=== PATIENT | female | born 1970 | race Two or more races ===

== ENCOUNTER 2024-05-25 00:09 | Emergency (ER) | payer BC ==
[~2024-05-25] VITALS: Ht 162.6 cm; Wt 73.8 kg
[2024-05-25 01:07] LABS: Basophils # (auto) 0 10 ^3/uL (0-0.2); Basophils % (auto) 0.8 % (0.0-2.0); Eosinophils # (auto) 0.1 10 ^3/uL (0-0.8); Eosinophils % (auto) 1.6 % (0.0-7.0); Hematocrit 42.6 % (36.0-46.0); Hemoglobin 14.1 g/dL (12.2-16.2); Lymphocytes # (auto) 1.9 10 ^3/uL (0.4-5.4); Lymphocytes % (auto) 35.9 % (10.0-50.0); Mean Corpuscular Hemoglobin 28.4 pg (28.0-32.0); Mean Corpuscular Hgb Conc. 33.1 g/dL (32.0-36.0); Mean Corpuscular Volume 85.9 fL (80.0-100.0); Monocytes # (auto) 0.4 10 ^3/uL (0-1.3); Monocytes % (auto) 7.3 % (0.0-12.0); Neutrophils # (auto) 2.8 10 ^3/uL (1.6-8.6); Neutrophils % (auto) 54.4 % (37.0-80.0); Nucleated Red Blood Cells % 0.1 %; Platelet Count (auto) 240 10^3/uL (140-450); Red Blood Cells 4.96 10^6/uL (4.0-5.20); Red Cell Distribution Width 13.8 % (11.8-14.3); White Blood Cell 5.2 10^3/uL (4.4-10.8)
[2024-05-25 01:23] LABS: Alanine Aminotransferase 21 U/L (7-40); Albumin 4.5 g/dL (3.2-4.8); Alkaline Phosphatase 81 U/L (46-116); Anion Gap 7 (5-15); Aspartate Aminotransferase 15 U/L (13-40); BUN/Creatinine Ratio 20.3 (10.0-20.0); Blood Urea Nitrogen 14 mg/dL (9-23); Calcium 9.5 mg/dL (8.7-10.4); Carbon Dioxide 26 mmol/L (20-31); Chloride 108 mmol/L (98-107); Glucose 108 mg/dL (74-106); Sodium 141 mmol/L (136-145)
[2024-05-25 01:24] LABS: Bilirubin, Total 0.4 mg/dL (0.2-1.0); Total Protein 6.8 g/dL (5.7-8.2)
[2024-05-25 01:29] LABS: Urine Bacteria None Seen /hpf (None Seen)
[2024-05-25 01:53] LABS: Urine Blood TRACE /uL (Negative); Urine Clarity Clear (Clear); Urine Color Light-Yellow (Yellow); Urine Protein, UAD Negative (Negative); Urine Specific Gravity 1.018 (1.001-1.035); Urine Urobilinogen Normal (Negative); Urine WBC 1 /hpf (0 - 5)
--- NOTE | 2024-05-25 02:50 | ED.PDOC ---
General HPI Comments 54-year-old female complaining of right-sided flank pain which started one week ago. States over the last 24 hours pain has become more intense more sharp and worse. No urinary symptoms. Denies any injury or trauma to the area. Nothing makes it better. Patient does report a history of recurrent urinary infections when she was younger. Denies any kidney stones. Chief Complaint: Flank Pain Time Seen by MD: 00:33 Reviewed notes: Nurses Notes Allergies: Coded Allergies: NO KNOWN ALLERGIES (Unverified , 05/25/24) Information Source: Patient Mode of Arrival: Ambulatory Past Medical History PAST MEDICAL HISTORY: UTI'S Constitutional: denies: chills, diaphoresis, fatigue, fever, malaise, sweats, weakness, others EENTM: denies: blurred vision, double vision, ear bleeding, ear discharge, ear drainage, ear pain, ear ringing, eye pain, eye redness, hearing loss, mouth p ain, mouth swelling, nasal discharge, nose bleeding, nose congestion, nose pain, photophobia, tearing, throat pain, throat swelling, voice changes, others Respiratory: denies: cough, hemoptysis, orthopnea, SOB at rest, shortness of br eath, SOB with excertion, stridor, wheezing, others Cardiovascular: denies: chest pain, dizzy spells, diaphoresis, Dyspnea on exertion, edema, irregular heart beat, left arm pain, lightheadedness, palpitations, PND, syncope, others Gastrointestinal: denies: abdomen distended, abdominal pain, blood streaked bowels, constipated, diarrhea, dysphagia, difficulty swallowing, hematemesis, melena, nausea, poor appetite, poor fluid intake, rectal bleeding, rectal pain, vomiting, others Genitourinary: reports: flank pain; denies: abnormal vagina bleeding, burning, dyspareunia, dysuria, frequency, hematuria, incontinence, pain, , vagina discharge, urgency, others Neurological: denies: dizziness, fainting, headache, left sided numbness, left sided weakness, numbness, paresthesia, pre-existing deficit, right sided numbness, right sided weakness, seizure, speech problems, tingling, tremors, weakness, others Musculoskeletal: denies: back pain, gout, joint pain, joint swelling, muscle pain, muscle stiffness, neck pain, others Integumetry: denies: bruises, change in color, change in hair/nails, dryness, laceration, lesions, lumps, rash, wounds, others Allergic/Immunocompromised: denies: Difficulty Healing, Frequent Infections, Hives, Itching, others Physical Exam General Appearance: No Apparent Distress, Normal HEENT: Normal ENT Inspection, Pharynx Normal, TMs Normal Neck: Full Range of Motion, Non-Tender, Normal, Normal Inspection Respiratory: Chest Non-Tender, Lungs Clear, No Accessory Muscle Use, No Respiratory Distress, Normal Breath Sounds Cardiovascular: No Edema, No JVD, No Murmur, No Gallop, Normal Peripheral Pulses, Regular Rate/Rhythm Breast Exam: Deferred Gastrointestinal: No Organomegaly, Non Tender, No Pulsatile Mass, Normal Bowel Sounds, Soft Genitalia: Deferred Pelvic: Deferred Rectal: Deferred Extremities: No calf tenderness, Normal capillary refill, Normal inspection, Normal range of motion, Non-tender, No pedal edema Musculoskeletal : Extremity Location: Back (Negative CVA tenderness) Apperance: Normal Neurologic: Alert, automatic tire tester II-XII nml as Tested, No Motor Deficits, Normal Affect, Normal Mood, No Sensory Deficits Cerebellar Function: Normal Reflexes: Normal Skin: Dry, Normal Color, Warm Lymphatic: No Adenopathy Was a procedure done? Was a procedure done?: No Differential Diagnosis Kidney stone (Female): Renal failure, Strain, Urinary obstruction, Urolithiasis Urinary Problem (Female): UTI X-Ray, Labs, Meds, VS Vital Signs Date Time Temp Pulse Resp B/P (MAP) Pulse Ox O2 Delivery O2 Flow Rate FiO2 05/25/24 05:44 97.7 66 16 120/69 (86) 100 97.7 05/25/24 00:29 97.8 75 18 100/65 (77) 98 Lab Test 05/25/24 00:54 05/25/24 00:30 Range/Units White Blood Count 5.2 4.4-10.8 10^3/uL Red Blood Count 4.96 4.0-5.20 10^6/uL Hemoglobin 14.1 12.2-16.2 g/dL Hematocrit 42.6 36.0-46.0 % Mean Corpuscular Volume 85.9 80.0-100.0 fL Mean Corpuscular Hemoglobin 28.4 28.0-32.0 pg Mean Corpuscular Hemoglobin Concent 33.1 32.0-36.0 g/dL Red Cell Distribution Width 13.8 11.8-14.3 % Platelet Count 240 140-450 10^3/uL Mean Platelet Volume 8.8 6.9-10.8 fL Neutrophils (%) (Auto) 54.4 37.0-80.0 % Lymphocytes (%) (Auto) 35.9 10.0-50.0 % Monocytes (%) (Auto) 7.3 0.0-12.0 % Eosinophils (%) (Auto) 1.6 0.0-7.0 % Basophils (%) (Auto) 0.8 0.0-2.0 % Neutrophils # (Auto) 2.8 1.6-8.6 10 ^3/uL Lymphocytes # (Auto) 1.9 0.4-5.4 10 ^3/uL Monocytes # (Auto) 0.4 0-1.3 10 ^3/uL Eosinophils # (Auto) 0.1 0-0.8 10 ^3/uL Basophils # (Auto) 0 0-0.2 10 ^3/uL Nucleated Red Blood Cells 0.1 % Sodium Level 141 136-145 mmol/L Potassium Level 4.0 3.5-5.1 mmol/L Chloride Level 108 H 98-107 mmol/L Carbon Dioxide Level 26 20-31 mmol/L Anion Gap 7 5-15 Blood Urea Nitrogen 14 9-23 mg/dL Creatinine 0.69 0.550-1.02 mg/dL Glomerular Filtration Rate Calc 104 >90 mL/min BUN/Creatinine Ratio 20.3 H 10.0-20.0 Serum Glucose 108 H 74-106 mg/dL Calcium Level 9.5 8.7-10.4 mg/dL Total Bilirubin 0.4 0.2-1.0 mg/dL Aspartate Amino Transferase (AST) 15 13-40 U/L Alanine Aminotransferase (ALT) 21 7-40 U/L Alkaline Phosphatase 81 46-116 U/L Total Protein 6.8 5.7-8.2 g/dL Albumin 4.5 3.2-4.8 g/dL Urine Color Light-yellow Yellow Urine Clarity Clear Clear Urine pH 6.0 5.0-9.0 Urine Specific [place] 1.018 1.001-1.035 Urine Protein Negative Negative Urine Ketones Negative Negative Urine Blood Trace H Negative /uL Urine Nitrite Negative Negative Urine Bilirubin Negative Negative Urine Urobilinogen Normal Negative mg/dL Urine Leukocyte Esterase Negative Negative /uL Urine RBC 2 0 - 4 /hpf Urine WBC 1 0 - 5 /hpf Urine Squamous Epithelial Cells Few <5 /hpf Urine Bacteria None seen None Seen /hpf Urine Glucose Normal Normal mg/dL [facility] [id number] [place] [id number] Ph: [phone] DIAGNOSTIC IMAGING Diagnostic Imaging Report : [id number] Signed PATIENT: JOE SCHUSTER ACCT: [id number] UNIT: [id number] : 1970 LOC: ER ROOM / BED: / AGE / SEX: 54 / F ADM STATUS: REG ER SERVICE [id number] ORDERING PHYSICIAN: LEANNA CLIFTON PROCEDURE(s): ABPL - CT AB PEL WO CON-NO ORAL OR IV REASON: flank pain ORDER NUMBER(s): [id number], ACCESSION NUMBER(s): [id number] Examination: ABPL CLINICAL INDICATION: flank pain COMPARISON: None. CONTRAST USED: None. TECHNIQUE: A plain CT study of the abdomen and pelvis was performed using 5 mm thin slices. Multiplanar reconstructions were obtained. The scan followed ALARA principles (As Low as Reasonably Achievable). FINDINGS: CT Abdomen: Lung Base: No focal infiltrates or pleural effusion. 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 Liver: Normal in size with homogeneous attenuation. No focal lesions detected. No intrahepatic biliary ductal dilatation. Gallbladder and Biliary System: Gallbladder appears unremarkable, with no evidence of intraluminal pathology. Common bile duct is not dilated. Pancreas: Normal in size and shape. No focal lesions or peripancreatic abnormalities. Spleen: Normal size, no focal abnormalities. Adrenal Glands: Both adrenal glands are normal in size and morphology. Kidneys: Right kidney shows a tiny 2 mm punctate calculus in the interpolar calyx. A 3 mm calculus in the right distal ureter near the iliac vessels with mild right-sided hydroureteronephrosis. No additional renal calculi or hydronephrosis. Perinephric spaces are clear. Vessels: Retroaortic left renal vein noted. Due to the unenhanced nature of the study, aorta, IVC, and mesenteric vessels are not well-evaluated. Stomach and Bowel: Small bowel loops appear unremarkable. Large bowel loops are moderately distended with fecal matter, suggestive of constipation. No evidence of diverticulosis, diverticulitis, or inflammatory bowel wall thickening. No ascites. CT Pelvis: Appendix: Visualized and appears unremarkable. Colon: Large bowel loops are moderately distended with fecal matter, indicating constipation. No diverticulosis or diverticulitis. Bladder: Urinary bladder appears unremarkable. Uterus and Adnexa: Intrauterine contraceptive device is identified. Bilateral ovaries appear normal, with no evidence of adnexal masses. Small calcific densities in the parametrial regions, likely phleboliths. Lymph Nodes and Fluid Collections: No significant pelvic lymphadenopathy. No abnormal fluid collections. Skeletal System: Mild degenerative changes in the sacroiliac joints and superolateral hip joints. Grade 1 anterolisthesis of L4 over L5 with severe bilateral facet arthropathy. Moderate narrowing of the bilateral neural foramina at the L5-S1 level. No acute osseous abnormalities. IMPRESSION: 1. Renal and Ureteral Findings: 3 mm calculus in the right distal ureter with mild hydroureteronephrosis. 2. Tiny 2 mm calculus in the interpolar calyx of the left kidney. 3. Colonic Findings: Moderate distention of the large bowel loops with fecal matter, indicating constipation. No evidence of inflammatory changes or diverticulitis. 4. Reproductive System: Intrauterine contraceptive device is in place. 5. Bilateral ovaries appear unremarkable. Presence of small phleboliths in the parametrial regions. 6. Spinal Findings: Grade 1 anterolisthesis of L4 over L5 with severe facet arthropathy and moderate foraminal narrowing at the L5-S1 level. 7. Mild degenerative changes in the sacroiliac joints and superolateral hip joints. Electronically Signed 05/25/2024 03:28 Olga Correa ATED BY: AFTAB RUBIO MD DICTATED DATE/TIME: 05/25/24327 SIGNED BY: AFTAB RUBIO MD SIGNED DATE/TIME: 05/25/24327 CC: CBC and CMP are normal. CT reveals right distal ureter calculus with mild hydro ureteral nephrosis in left kidney calculus. The patient was discharged with Levaquin and [place]. X-Ray, Labs, Meds, VS Comment Imaging: X-rays and CT scans were reviewed and interpreted by this provider, imaging shows no fractures and no pathological disease. Pending radiology review. Laboratory: Labs reviewed and interpreted by this provider. No significant abnormalities noted. Patient has prior medical visits reviewed. Med reconciliation performed Vital signs reviewed Time of 1ST Reevaluation: 02:56 Reevaluation 1ST: Unchanged Patient Education/Counseling: Diagnosis, Treatment, Need For Follow Up (Patient advised to follow-up in the emergency room in the next 24 to 48 hours if symptoms do not improve. Advised follow-up with PCP in the next 3 to 5 days. Patient verbalized understanding. ) Family Education/Counseling: Diagnosis, Treatment Departure 1 Departure Time of Disposition: 05:49 Impression: Primary Impression: Ureteral stone Additional Impression: Kidney stone Disposition: 01 HOME / SELF CARE / HOMELESS Condition: Fair Additional Instructions: Reassessed patient, vital signs stable. Denies any new symptoms. Patient is able to tolerate PO and ambulate/be mobile at their baseline without concern. Risks and benefits of all medications given or prescribed, if any, discussed. All lab work, imaging and diagnostic studies were reviewed by me. The patient was counseled extensively on my clinical impression, diagnosis, expected course of the disease, and plan, including their follow-up care. Will discharge patient. Patient instructed to follow up with Primary Care Physician within 24-48 hours. Strict return precautions given for further exacerbation of symptoms or for new symptoms. The patient was given the opportunity to ask questions and all questions were answered by myself and the nursing/tech staff. Patient is in agreement with the care plan. The patient verbally expressed understanding of the discharge instructions, including the reasons to return to the Emergency Department. e-Prescriptions Levofloxacin Hemihydrate (LEVAQUIN 500 MG) 500 Mg Tab 1 TAB PO DAILY, #7 TAB Prov: ASHWIN PATTERSON MD 05/25/24 Hydrocodone-Acetaminophen (Hydrocodone Bitartrate/AC 10-325 mg) 1 Tab Tab 1 TAB PO QIDPRN, #20 TAB Prov: ASHWIN PATTERSON MD 05/25/24 Discharged With: Self Critical Care Note Critical Care Time?: No Stability Stability form required: No Heart Score Heart Score: Heart Score Response (Comments) Value History N/A 0 EKG N/A 0 Age N/A 0 Risk Factors N/A 0 Troponin N/A 0 Total 0 LEANNA CLIFTON May 25, 2024 02:49 ASHWIN PATTERSON MD May 25, 2024 05:53
--- NOTE | 2024-05-25 03:36 | DVH ---
Examination: ABPL CLINICAL INDICATION: flank pain COMPARISON: None. CONTRAST USED: None. TECHNIQUE: A plain CT study of the abdomen and pelvis was performed using 5 mm thin slices. Multiplan ar reconstructions were obtained. The scan followed ALARA principles (As Low as Reasonably Achievable ). FINDINGS: CT Abdomen: Lung Base: No focal infiltrates or pleural effusion. 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 Liver: Normal in size with homogeneous attenuation. No focal lesions detected. No intrahepatic biliar y ductal dilatation. Gallbladder and Biliary System: Gallbladder appears unremarkable, with no evidence of intraluminal pa thology. Common bile duct is not dilated. Pancreas: Normal in size and shape. No focal lesions or peripancreatic abnormalities. Spleen: Normal size, no focal abnormalities. Adrenal Glands: Both adrenal glands are normal in size and morphology. Kidneys: Right kidney shows a tiny 2 mm punctate calculus in the interpolar calyx. A 3 mm calculus in the right distal ureter near the iliac vessels with mild right-sided hydroureteron ephrosis. No additional renal calculi or hydronephrosis. Perinephric spaces are clear. Vessels: Retroaortic left renal vein noted. Due to the unenhanced nature of the study, aorta, IVC, and mesenteric vessels are not well-evaluated. Stomach and Bowel: Small bowel loops appear unremarkable. Large bowel loops are moderately distended with fecal matter, suggestive of constipation. No evidence of diverticulosis, diverticulitis, or inflammatory bowel wall thickening. No ascites. CT Pelvis: Appendix: Visualized and appears unremarkable. Colon: Large bowel loops are moderately distended with fecal matter, indicating constipation. No dive rticulosis or diverticulitis. Bladder: Urinary bladder appears unremarkable. Uterus and Adnexa: Intrauterine contraceptive device is identified. Bilateral ovaries appear normal, with no evidence of adnexal masses. Small calcific densities in the parametrial regions, likely phleboliths. Lymph Nodes and Fluid Collections: No significant pelvic lymphadenopathy. No abnormal fluid collectio ns. Skeletal System: Mild degenerative changes in the sacroiliac joints and superolateral hip joints. Gra de 1 anterolisthesis of L4 over L5 with severe bilateral facet arthropathy. Moderate narrowing of the bilateral neural foramina at the L5-S1 level. No acute osseous abnormalities. IMPRESSION: 1. Renal and Ureteral Findings: 3 mm calculus in the right distal ureter with mild hydroureteronephr osis. 2. Tiny 2 mm calculus in the interpolar calyx of the left kidney. 3. Colonic Findings: Moderate distention of the large bowel loops with fecal matter, indicating cons tipation. No evidence of inflammatory changes or diverticulitis. 4. Reproductive System: Intrauterine contraceptive device is in place. 5. Bilateral ovaries appear unremarkable. Presence of small phleboliths in the parametrial regions. 6. Spinal Findings: Grade 1 anterolisthesis of L4 over L5 with severe facet arthropathy and moderate foraminal narrowing at the L5-S1 level. 7. Mild degenerative changes in the sacroiliac joints and superolateral hip joints. Electronically Signed 05/25/2024 03:28 Olga Correa
[2024-05-25 05:44] VITALS: BP 120/69; PULSE 66; RESP 16; TEMP 97.7; O2SAT 100
[2024-05-25] MEDS ORDERED: LEVO500T91 PO (05:51)
[2024-05-25] MEDS ORDERED: HYDR-4798 PO (05:51)
== END 2024-05-25 06:16 | disposition home or self-care (01) ==
LOC: ER 00:09
DX: N13.2 Hydronephrosis with renal and ureteral calculous obstruction (principal); Z87.440 Personal history of urinary (tract) infections
CPT/HCPCS: 36415; 74176; 80053; 81001; 85025

== ENCOUNTER 2024-06-04 10:04 | Emergency (ER) | payer BC ==
[~2024-06-04] VITALS: Ht 162.6 cm; Wt 72.7 kg
[~2024-06-04 10:04] MED LIST: HYDR-4798 PO; LEVO500T91 PO
--- NOTE | 2024-06-04 11:29 | ED.PDOC ---
General HPI Comments 54Y F with PMHx UTIs and kidney stones presents to ED for chief complaint rt flank pain since this morning. Pt states she was dx with kidney stone 1wk ago. Pt denies hematuria, fever, nausea, and vomiting. No known allergies. Chief Complaint: Flank Pain Time Seen by MD: 11:00 Reviewed notes: Medications, Allergies Allergies: Coded Allergies: NO KNOWN ALLERGIES (Unverified , 05/25/24) Home Meds Active Scripts Levofloxacin Hemihydrate (LEVAQUIN 500 MG) 500 Mg Tab, 1 TAB PO DAILY, #7 TAB Prov:ASHWIN PATTERSON MD 05/25/24 Hydrocodone-Acetaminophen (Hydrocodone Bitartrate/AC 10-325 mg) 1 Tab Tab, 1 TAB PO QIDPRN, #20 TAB Prov:ASHWIN PATTERSON MD 05/25/24 Information Source: Patient, Spouse Mode of Arrival: Ambulatory Severity: Mild Inability to void: Mild Timing: Hours Duration: Since onset Onset: Spontaneous Symptoms: None History of: UTI, Kidney stone Location: (R) Flank Modifying factors: None associated signs and symptoms: Other Past Medical History PAST MEDICAL HISTORY: Kidney Stones, UTI'S Surgical History: Denies all surgeries DOWN FILLER History: No Pertinent DOWN FILLER History Family History Family History: Unknown Social History Smoker: Non-Smoker Alcohol: Denies ETOH Use Drugs: Denies Drug Use Lives In: Home Constitutional: denies: chills, diaphoresis, fatigue, fever, malaise, sweats, weakness, others EENTM: denies: blurred vision, double vision, ear bleeding, ear discharge, ear drainage, ear pain, ear ringing, eye pain, eye redness, hearing loss, mouth pain, mouth swelling, nasal discharge, nose bleeding, nose congestion, nose pain, photophobia, tearing, throat pain, throat swelling, voice changes, others Respiratory: denies: cough, hemoptysis, orthopnea, SOB at rest, shortness of breath, SOB with excertion, stridor, wheezing, others Cardiovascular: denies: chest pain, dizzy spells, diaphoresis, Dyspnea on exertion, edema, irregular heart beat, left arm pain, lightheadedness, palpitations, PND, syncope, others Gastrointestinal: denies: abdomen distended, abdominal pain, blood streaked bowels, constipated, diarrhea, dysphagia, difficulty swallowing, hematemesis, melena, nausea, poor appetite, poor fluid intake, rectal bleeding, rectal pain, vomiting, others Genitourinary: reports: flank pain; denies: abnormal vagina bleeding, burning, dyspareunia, dysuria, frequency, hematuria, incontinence, pain, , vagina discharge, urgency, others Neurological: denies: dizziness, fainting, headache, left sided numbness, left sided weakness, numbness, paresthesia, pre-existing deficit, right sided numbness, right sided weakness, seizure, speech problems, tingling, tremors, weakness, others Musculoskeletal: denies: back pain, gout, joint pain, joint swelling, muscle pain, muscle stiffness, neck pain, others Integumetry: denies: bruises, change in color, change in hair/nails, dryness, laceration, lesions, lumps, rash, wounds, others Allergic/Immunocompromised: denies: Difficulty Healing, Frequent Infections, Hives, Itching, others Hematologic/Lymphatic: denies: anemia, blood clots, easy bleeding, easy bruising, swollen glands, others Endocrine: denies: excessive hunger, excessive sweating, excessive thirst, excessive urination, flushing, intolerance to cold, intolerance to heat, unexplained weight gain, unexplained weight loss, others Psychiatric: denies: anxiety, bipolar disorder, depression, hopeless, panic disorder, schizophrenia, sleepless, suicidal, others All Other Systems: Reviewed and Negative Physical Exam General Appearance: No Apparent Distress, Normal HEENT: Normal ENT Inspection, Pharynx Normal, TMs Normal Neck: Full Range of Motion, Non-Tender, Normal, Normal Inspection Respiratory: Chest Non-Tender, Lungs Clear, No Accessory Muscle Use, No Respiratory Distress, Normal Breath Sounds Cardiovascular: No Edema, No JVD, No Murmur, No Gallop, Normal Peripheral Pulses, Regular Rate/Rhythm Breast Exam: Deferred Gastrointestinal: No Organomegaly, Non Tender, No Pulsatile Mass, Normal Bowel Sounds, Soft Genitalia: Deferred Pelvic: Deferred Rectal: Deferred Extremities: No calf tenderness, Normal capillary refill, Normal inspection, Normal range of motion, Non-tender, No pedal edema Musculoskeletal : Apperance: Normal Neurologic: Alert, professor of languages II-XII nml as Tested, No Motor Deficits, Normal Affect, Normal Mood, No Sensory Deficits Cerebellar Function: Normal Reflexes: Normal Skin: Dry, Normal Color, Warm Lymphatic: No Adenopathy Was a procedure done? Was a procedure done?: No Differential Diagnosis Kidney stone (Female): Musculoskeletal pain, Urinary obstruction, Urolithiasis X-Ray, Labs, Meds, VS Vital Signs Date Time Temp Pulse Resp B/P (MAP) Pulse Ox O2 Delivery O2 Flow Rate FiO2 06/04/24 12:56 65 17 99 Room Air 06/04/24 12:56 98.5 65 17 110/70 (83) 99 98.5 06/04/24 12:18 18 97 Room Air* 0 21 06/04/24 11:56 72 18 97 Room Air 06/04/24 11:56 98.0 72 18 108/73 (85) 97 98.0 06/04/24 10:26 97.3 97 20 133/84 (100) 96 Lab Test 06/04/24 11:18 06/04/24 10:18 Range/Units White Blood Count 5.9 4.4-10.8 10^3/uL Red Blood Count 4.83 4.0-5.20 10^6/uL Hemoglobin 13.8 12.2-16.2 g/dL Hematocrit 41.4 36.0-46.0 % Mean Corpuscular Volume 85.6 80.0-100.0 fL Mean Corpuscular Hemoglobin 28.6 28.0-32.0 pg Mean Corpuscular Hemoglobin Concent 33.4 32.0-36.0 g/dL Red Cell Distribution Width 13.6 11.8-14.3 % Platelet Count 232 140-450 10^3/uL Mean Platelet Volume 8.8 6.9-10.8 fL Neutrophils (%) (Auto) 68.7 37.0-80.0 % Lymphocytes (%) (Auto) 23.3 10.0-50.0 % Monocytes (%) (Auto) 6.6 0.0-12.0 % Eosinophils (%) (Auto) 0.6 0.0-7.0 % Basophils (%) (Auto) 0.8 0.0-2.0 % Neutrophils # (Auto) 4.1 1.6-8.6 10 ^3/uL Lymphocytes # (Auto) 1.4 0.4-5.4 10 ^3/uL Monocytes # (Auto) 0.4 0-1.3 10 ^3/uL Eosinophils # (Auto) 0 0-0.8 10 ^3/uL Basophils # (Auto) 0 0-0.2 10 ^3/uL Nucleated Red Blood Cells 0.0 % Sodium Level 141 136-145 mmol/L Potassium Level 4.2 3.5-5.1 mmol/L Chloride Level 107 98-107 mmol/L Carbon Dioxide Level 28 20-31 mmol/L Anion Gap 6 5-15 Blood Urea Nitrogen 16 9-23 mg/dL Creatinine 0.72 0.550-1.02 mg/dL Glomerular Filtration Rate Calc 101 >90 mL/min BUN/Creatinine Ratio 22.2 H 10.0-20.0 Serum Glucose 105 74-106 mg/dL Calcium Level 9.9 8.7-10.4 mg/dL Beta HCG, Quantitative 3.4 1.5-4.2 mIU/mL Urine Color Colorless Yellow Urine Clarity Clear Clear Urine pH 7.5 5.0-9.0 Urine Specific [place] 1.008 1.001-1.035 Urine Protein Negative Negative Urine Ketones Negative Negative Urine Blood Negative Negative /uL Urine Nitrite Negative Negative Urine Bilirubin Negative Negative Urine Urobilinogen Normal Negative mg/dL Urine Leukocyte Esterase Negative Negative /uL Urine RBC 1 0 - 4 /hpf Urine WBC None seen 0 - 5 /hpf Urine Squamous Epithelial Cells Few <5 /hpf Urine Bacteria Few H None Seen /hpf Urine Glucose Normal Normal mg/dL Current Medications Medications (Trade) Dose Ordered Sig/Asmita Route Start Time Stop Time Status Last Admin Ketorolac Tromethamine (Toradol Injection) 30 mg ONCE ONCE IV 06/04/24 11:15 06/04/24 11:16 DC 06/04/24 12:14 Sodium Chloride 1,000 ml @ 1,000 mls/hr Q1H ONCE IV 06/04/24 11:15 06/04/24 12:14 DC 06/04/24 12:14 [place] [id number] Ph: [phone] DIAGNOSTIC IMAGING Diagnostic Imaging Report : [id number] Signed PATIENT: JOE SCHUSTER ACCT: [id number] UNIT: [id number] : 1970 LOC: ER ROOM / BED: / AGE / SEX: 54 / F ADM STATUS: REG ER SERVICE 1110 ORDERING PHYSICIAN: MURTAZA GILES MD PROCEDURE(s): ABPL - CT AB PEL WO CON-NO ORAL OR IV REASON: right flank pain ORDER NUMBER(s): [id number], ACCESSION NUMBER(s): [id number] CT CT AB PEL WO CON-NO ORAL OR IV INDICATION: right flank pain EXAM DATE: 06/04/2024 12:09 PM COMPARISON: CT CT AB PEL WO CON-NO ORAL OR IV on DOS: 05/25/24 RADIATION DOSE: CTDIvol: 9.47 mGy, DLP: 453.6 mGy*cm PROCEDURE: Helical CT images were obtained of the abdomen and pelvis without IV contrast Sagittal and coronal reconstructions are provided. ORAL CONTRAST: None. ADDITIONAL IMAGES / REFORMATS: None All CT scans at this medical facility are performed using dose modulation techniques as appropriate to a performed exam including the following: Automated exposure control was utilized; adjustment of the MA and/or KV according to patient size; and use of iterative reconstruction technique. FINDINGS: LUNG BASE: Normal. LIVER: Normal. GALLBLADDER AND BILIARY TREE: No calcified gallstones. Normal caliber wall. No intra- or extrahepatic biliary ductal dilation. PANCREAS: Normal. SPLEEN: Normal. BOWEL: Normal. Normal appendix. ADRENALS: Normal. KIDNEYS AND URETER: Punctate nonobstructive left kidney stones. BLADDER: Normal. REPRODUCTIVE ORGANS: IUD in the uterus. LYMPH NODES:No lymphadenopathy. PERITONEUM: No ascites or free air. No other fluid collection. VESSELS: Scattered atherosclerotic calcifications are noted. RETROPERITONEUM: Normal. ABDOMINAL WALL: Normal. BONES: Scattered osseous degenerative changes are noted. IMPRESSION: No acute intraabdominal abnormality. Punctate nonobstructive left kidney stones. IUD in the uterus in appropriate position. ATED BY: KEVIN DEMPSEY MD DICTATED DATE/TIME: 06/04/24 1238 SIGNED BY: KEVIN DEMPSEY MD SIGNED DATE/TIME: 06/04/24 1238 CC: Time of 1ST Reevaluation: 11:30 Reevaluation 1ST: Unchanged Time of 2ND Reevaluation: 15:44 Reevaluation 2ND: Improved Patient Education/Counseling: Diagnosis, Treatment Family Education/Counseling: Diagnosis, Treatment Additional Information Tests ordered and results reviewed: CBC, BMP, beta hCG, UA, CT abd/pelvis. Independent historians include: Spouse. Dr. Giles interpreted each of the tests and agrees with the result. Results and treatment discussed with the pt/family members and medical personnel. pt has no evidence of kidney stones or pyelonephritis or uti. her back pain may be muscular in nature. i will start her on motrin and flexeril Departure 1 Departure Time of Disposition: 15:45 Impression: Primary Impression: Back pain Qualified Codes: M54.50 - Low back pain, unspecified Disposition: HOME / SELF CARE / HOMELESS Condition: Good e-Prescriptions Cyclobenzaprine HCl (Cyclobenzaprine Hydrochlo) 7.5 Mg Tab 7.5 MG PO Q8HP PRN for 3 Days, #9 TAB Prov: MURTAZA GILES MD 06/04/24 Ibuprofen Micronized (MOTRIN TABLET) 600 Mg Tb 600 MG PO TID PRN, #40 TAB *Black box warning-NSAIDS can increase risk of [place] & hypertension, GI irritation, ulceration, bleed, perferation. Do not use post cardiac surgery. Use short duration/lowest effective dose. Prov: MURTAZA GILES MD 06/04/24 Discharged With: Self Critical Care Note Critical Care Time?: No Stability Stability form required: No I personally scribed for MURTAZA GILES MD ([facility]) on 06/04/24 at 11:29. Electronically submitted by Anisa Dale ([employer]). I personally scribed for MURTAZA GILES MD ([email or web address]) on 06/04/24 at 11:30. Electronically submitted by Anisa Dale ([employer]). I personally scribed for MURTAZA GILES MD ([email or web address]) on 06/04/24 at 13:14. Electronically submitted by Anisa Dale ([employer]). MURTAZA GILES MD Jun 04, 2024 11:29
[2024-06-04 11:38] LABS: Basophils # (auto) 0 10 ^3/uL (0-0.2); Basophils % (auto) 0.8 % (0.0-2.0); Eosinophils # (auto) 0 10 ^3/uL (0-0.8); Eosinophils % (auto) 0.6 % (0.0-7.0); Hematocrit 41.4 % (36.0-46.0); Hemoglobin 13.8 g/dL (12.2-16.2); Lymphocytes # (auto) 1.4 10 ^3/uL (0.4-5.4); Lymphocytes % (auto) 23.3 % (10.0-50.0); Mean Corpuscular Hemoglobin 28.6 pg (28.0-32.0); Mean Corpuscular Hgb Conc. 33.4 g/dL (32.0-36.0); Mean Corpuscular Volume 85.6 fL (80.0-100.0); Monocytes # (auto) 0.4 10 ^3/uL (0-1.3); Monocytes % (auto) 6.6 % (0.0-12.0); Neutrophils # (auto) 4.1 10 ^3/uL (1.6-8.6); Neutrophils % (auto) 68.7 % (37.0-80.0); Platelet Count (auto) 232 10^3/uL (140-450); Red Blood Cells 4.83 10^6/uL (4.0-5.20); Red Cell Distribution Width 13.6 % (11.8-14.3); White Blood Cell 5.9 10^3/uL (4.4-10.8)
[2024-06-04 11:40] LABS: Anion Gap 6 (5-15); Calcium 9.9 mg/dL (8.7-10.4); Carbon Dioxide 28 mmol/L (20-31); Chloride 107 mmol/L (98-107); Potassium 4.2 mmol/L (3.5-5.1); Sodium 141 mmol/L (136-145)
[2024-06-04 11:44] LABS: Urine WBC None Seen /hpf (0 - 5)
[2024-06-04 11:46] LABS: BUN/Creatinine Ratio 22.2 (10.0-20.0); Blood Urea Nitrogen 16 mg/dL (9-23); Glucose 105 mg/dL (74-106)
[2024-06-04 11:50] LABS: Urine Bacteria FEW /hpf (None Seen); Urine Blood Negative /uL (Negative); Urine Clarity Clear (Clear); Urine Color Colorless (Yellow); Urine Protein, UAD Negative (Negative); Urine Specific Gravity 1.008 (1.001-1.035); Urine Squamous Epithelial Cell FEW /hpf (<5); Urine Urobilinogen Normal (Negative); Urine pH 7.5 (5.0-9.0)
[2024-06-04] MEDS: KETOROLAC TROMETH 30 MG/ML 1ML VIAL ONE (12:12)
[2024-06-04] MEDS: SODIUM CHLORIDE 0.9% 1,000 ML IV ONE (12:14)
[2024-06-04] MEDS: KETOROLAC TROMETH 30 MG/ML 1ML VIAL IV ONE (12:14)
[2024-06-04 12:18] VITALS: RESP 18; O2SAT 97
--- NOTE | 2024-06-04 12:40 | DVH ---
CT CT AB PEL WO CON-NO ORAL OR IV INDICATION: right flank pain EXAM DATE: 06/04/2024 12:09 PM COMPARISON: CT CT AB PEL WO CON-NO ORAL OR IV on DOS: 05/25/24 RADIATION DOSE: CTDIvol: 9.47 mGy, DLP: 453.6 mGy*cm PROCEDURE: Helical CT images were obtained of the abdomen and pelvis without IV contrast Sagittal an d coronal reconstructions are provided. ORAL CONTRAST: None. ADDITIONAL IMAGES / REFORMATS: None All CT scans at this medical facility are performed using dose modulation techniques as appropriate t o a performed exam including the following: Automated exposure control was utilized; adjustment of th e MA and/or KV according to patient size; and use of iterative reconstruction technique. FINDINGS: LUNG BASE: Normal. LIVER: Normal. GALLBLADDER AND BILIARY TREE: No calcified gallstones. Normal caliber wall. No intra- or extrahepatic biliary ductal dilation. PANCREAS: Normal. SPLEEN: Normal. BOWEL: Normal. Normal appendix. ADRENALS: Normal. KIDNEYS AND URETER: Punctate nonobstructive left kidney stones. BLADDER: Normal. REPRODUCTIVE ORGANS: IUD in the uterus. LYMPH NODES:No lymphadenopathy. PERITONEUM: No ascites or free air. No other fluid collection. VESSELS: Scattered atherosclerotic calcifications are noted. RETROPERITONEUM: Normal. ABDOMINAL WALL: Normal. BONES: Scattered osseous degenerative changes are noted. IMPRESSION: No acute intraabdominal abnormality. Punctate nonobstructive left kidney stones. IUD in the uterus in appropriate position.
[2024-06-04 12:56] VITALS: TEMP 98.5
[2024-06-04] MEDS ORDERED: CYCL7.5T66 PO (15:47)
[2024-06-04] MEDS ORDERED: IBU600T PO (15:47)
[2024-06-04 15:59] VITALS: BP 113/61; PULSE 66; RESP 17; O2SAT 100
== END 2024-06-04 16:00 | disposition home or self-care (01) ==
LOC: ER 10:04
DX: M54.59 Other low back pain (principal); R10.2 Pelvic and perineal pain; Z87.442 Personal history of urinary calculi; Z87.440 Personal history of urinary (tract) infections
CPT/HCPCS: 36415; 74176; 80048; 81001; 84702; 85025; 96361; 96374; 99285; J1885; J7030

== ENCOUNTER 2025-01-16 10:15 | Outpatient (CLI) | payer BC ==
[~2025-01-16 10:15] MED LIST changes: +CYCL7.5T66 PO; +IBU600T PO
[2025-01-16 10:46] LABS: Hematocrit 43.3 % (36.0-46.0); Hemoglobin 14.7 g/dL (12.2-16.2); Mean Corpuscular Hemoglobin 28.8 pg (28.0-32.0); Mean Corpuscular Volume 85.0 fL (80.0-100.0); Nucleated Red Blood Cells % 0.1 %
[2025-01-16 10:55] LABS: Urine Protein, UAD Negative (Negative)
[2025-01-16 11:10] LABS: Follicle Stimulating Hormone 95.03 IU/L (SEE BELOW)
[2025-01-16 11:13] LABS: Alkaline Phosphatase 100 U/L (46-116); Anion Gap 8 (5-15); BUN/Creatinine Ratio 16.9 (10.0-20.0); Bilirubin, Total 0.4 mg/dL (0.2-1.0); Blood Urea Nitrogen 15 mg/dL (9-23); Calcium 10.4 mg/dL (8.7-10.4); Carbon Dioxide 28 mmol/L (20-31); Chloride 105 mmol/L (98-107); Cholesterol 197 mg/dL (< 200); Free T4 (Free Thyroxine) 1.02 ng/dL (0.89-1.76); Glucose 100 mg/dL (74-106); Potassium 4.5 mmol/L (3.5-5.1); Sodium 141 mmol/L (136-145); Total Protein 7.2 g/dL (5.7-8.2); Triglycerides 87 mg/dL (< 150)
[2025-01-16 11:15] LABS: Alanine Aminotransferase 54 U/L (7-40); Albumin 4.9 g/dL (3.2-4.8); HDL Cholesterol 62 mg/dL (40-59)
== END 2025-01-16 17:00 | disposition home or self-care (01) ==
LOC: LAB 10:15
PROVIDERS: ATTEND Student in an Organized Health Care Education/Training Program
DX: E55.9 Vitamin D deficiency, unspecified (principal); N95.9 Unspecified menopausal and perimenopausal disorder; R79.89 Other specified abnormal findings of blood chemistry; R03.0 Elevated blood-pressure reading, without diagnosis of hypertension
CPT/HCPCS: 36415; 80053; 80061; 81001; 82306; 83001; 83002; 83036; 84439; 84443; 85025

== ENCOUNTER 2025-06-08 17:12 | Emergency (ER) | payer BC ==
[~2025-06-08] VITALS: Ht 162.6 cm; Wt 77.6 kg
[2025-06-08 18:45] LABS: Hematocrit 40.3 % (36.0-46.0); Hemoglobin 13.6 g/dL (12.2-16.2); Mean Corpuscular Hemoglobin 28.4 pg (28.0-32.0); Mean Corpuscular Volume 84.4 fL (80.0-100.0); Nucleated Red Blood Cells % 0.1 %
[2025-06-08 19:04] LABS: Alanine Aminotransferase 28 U/L (7-40); Albumin 4.6 g/dL (3.2-4.8); Alkaline Phosphatase 112 U/L (46-116); Anion Gap 9 (5-15); BUN/Creatinine Ratio 16.7 (10.0-20.0); Blood Urea Nitrogen 13 mg/dL (9-23); Calcium 9.5 mg/dL (8.7-10.4); Carbon Dioxide 28 mmol/L (20-31); Glucose 102 mg/dL (74-106); Lipase 33 U/L (12-53); Potassium 4.1 mmol/L (3.5-5.1); Sodium 144 mmol/L (136-145); Total Protein 7.0 g/dL (5.7-8.2)
[2025-06-08 19:06] LABS: Bilirubin, Total 0.3 mg/dL (0.2-1.0); Chloride 107 mmol/L (98-107)
--- NOTE | 2025-06-08 19:09 | ED.PDOC ---
General HPI Comments 55-year-old female who came to ER or flank pains. Patient does have you still have history of right-sided kidney stones. It a past three days she has been experiencing right flank pains, burning, radiating to her back. She states it feels like kidney stones. Denies any gross hematuria, nausea or vomiting Chief Complaint: Flank Pain Time Seen by MD: 19:09 Reviewed notes: Nurses Notes Allergies: Coded Allergies: NO KNOWN ALLERGIES (Unverified , 05/25/24) Home Meds Active Scripts Gabapentin (Once-Daily) (Gabapentin) 300 Mg Tab, 300 MG PO Q6HP PRN, #30 TAB Prov:MARGARET CRAFT MD 06/08/25 Cefdinir (Cefdinir) 300 Mg Cap, 1 CAP PO BID for 7 Days, #14 CAP Prov:MARGARET CRAFT MD 06/08/25 Cyclobenzaprine HCl (Cyclobenzaprine Hydrochlo) 7.5 Mg Tab, 7.5 MG PO Q8HP PRN for 3 Days, #9 TAB Prov:MURTAZA BRAR MD 06/04/24 Ibuprofen Micronized (MOTRIN TABLET) 600 Mg Tb, 600 MG PO TID PRN, #40 TAB *Black box warning-NSAIDS can increase risk of [place] & hypertension, GI irritation, ulceration, bleed, perferation. Do not use post cardiac surgery. Use short duration/lowest effective dose. Prov:MURTAZA BRAR MD 06/04/24 Levofloxacin Hemihydrate (LEVAQUIN 500 MG) 500 Mg Tab, 1 TAB PO DAILY, #7 TAB Prov:ASHWIN PATTERSON MD 05/25/24 Hydrocodone-Acetaminophen (Hydrocodone Bitartrate/AC 10-325 mg) 1 Tab Tab, 1 TAB PO QIDPRN, #20 TAB Prov:ASHWIN PATTERSON MD 05/25/24 Information Source: Patient Mode of Arrival: Ambulatory Severity: Moderate Past Medical History PAST MEDICAL HISTORY: Kidney Stones, UTI'S Surgical History: Denies all surgeries CUSTOM HOME INSTALLER History: No Pertinent CUSTOM HOME INSTALLER History Family History Family History: Reviewed,noncontributory to illness Social History Smoker: Non-Smoker Alcohol: Denies ETOH Use Drugs: Denies Drug Use Lives In: Home Constitutional: denies: chills, diaphoresis, fatigue, fever, malaise, sweats, weakness, others EENTM: denies: blurred vision, double vision, ear bleeding, ear discharge, ear drainage, ear pain, ear ringing, eye pain, eye redness, hearing loss, mouth pain, mouth swelling, nasal discharge, nose bleeding, nose congestion, nose pain, photophobia, tearing, throat pain, throat swelling, voice changes, others Respiratory: denies: cough, hemoptysis, orthopnea, SOB at rest, shortness of breath, SOB with excertion, stridor, wheezing, others Cardiovascular: denies: chest pain, dizzy spells, diaphoresis, Dyspnea on exertion, edema, irregular heart beat, left arm pain, lightheadedness, palpitations, PND, syncope, others Gastrointestinal: denies: abdomen distended, abdominal pain, blood streaked bowels, constipated, diarrhea, dysphagia, difficulty swallowing, hematemesis, melena, nausea, poor appetite, poor fluid intake, rectal bleeding, rectal pain, vomiting, others Genitourinary: reports: flank pain; denies: abnormal vagina bleeding, burning, dyspareunia, dysuria, frequency, hematuria, incontinence, pain, , vagina discharge, urgency, others Neurological: denies: dizziness, fainting, headache, left sided numbness, left sided weakness, numbness, paresthesia, pre-existing deficit, right sided numbness, right sided weakness, seizure, speech problems, tingling, tremors, weakness, others Musculoskeletal: reports: back pain; denies: gout, joint pain, joint swelling, muscle pain, muscle stiffness, neck pain, others Integumetry: denies: bruises, change in color, change in hair/nails, dryness, laceration, lesions, lumps, rash, wounds, others Allergic/Immunocompromised: denies: Difficulty Healing, Frequent Infections, Hives, Itching, others Hematologic/Lymphatic: denies: anemia, blood clots, easy bleeding, easy bruising, swollen glands, others Endocrine: denies: excessive hunger, excessive sweating, excessive thirst, excessive urination, flushing, intolerance to cold, intolerance to heat, unexplained weight gain, unexplained weight loss, others Psychiatric: denies: anxiety, bipolar disorder, depression, hopeless, panic disorder, schizophrenia, sleepless, suicidal, others Physical Exam General Appearance: No Apparent Distress, Normal HEENT: Normal ENT Inspection, Pharynx Normal, TMs Normal Neck: Full Range of Motion, Non-Tender, Normal, Normal Inspection Respiratory: Chest Non-Tender, Lungs Clear, No Accessory Muscle Use, No Respiratory Distress, Normal Breath Sounds Cardiovascular: No Edema, No JVD, No Murmur, No Gallop, Normal Peripheral Pulses, Regular Rate/Rhythm Breast Exam: Deferred Gastrointestinal: No Organomegaly, Non Tender, No Pulsatile Mass, Normal Bowel Sounds, Soft Genitalia: Deferred Pelvic: Deferred Rectal: Deferred Extremities: No calf tenderness, Normal capillary refill, Normal inspection, Normal range of motion, Non-tender, No pedal edema Musculoskeletal : Apperance: Normal Neurologic: Alert, embedded software architect II-XII nml as Tested, No Motor Deficits, Normal Affect, Normal Mood, No Sensory Deficits Cerebellar Function: Normal Reflexes: Normal Skin: Dry, Normal Color, Warm Lymphatic: No Adenopathy Was a procedure done? Was a procedure done?: No Differential Diagnosis Kidney stone (Female): Musculoskeletal pain, Pancreatitis, Pyelonephritis, Renal failure, Urinary obstruction, Urolithiasis X-Ray, Labs, Meds, VS Vital Signs Date Time Temp Pulse Resp B/P (MAP) Pulse Ox O2 Delivery O2 Flow Rate FiO2 06/08/25 20:03 76 20 96 Room Air 06/08/25 20:03 98.3 76 20 121/75 (90) 96 98.3 06/08/25 17:14 98.2 82 16 128/81 98 98.2 Lab Test 06/08/25 18:30 Range/Units White Blood Count 4.8 4.4-10.8 10^3/uL Red Blood Count 4.78 4.0-5.20 10^6/uL Hemoglobin 13.6 12.2-16.2 g/dL Hematocrit 40.3 36.0-46.0 % Mean Corpuscular Volume 84.4 80.0-100.0 fL Mean Corpuscular Hemoglobin 28.4 28.0-32.0 pg Mean Corpuscular Hemoglobin Concent 33.7 32.0-36.0 g/dL Red Cell Distribution Width 13.7 11.8-14.3 % Platelet Count 232 140-450 10^3/uL Mean Platelet Volume 8.6 6.9-10.8 fL Neutrophils (%) (Auto) 51.2 37.0-80.0 % Lymphocytes (%) (Auto) 39.6 10.0-50.0 % Monocytes (%) (Auto) 7.0 0.0-12.0 % Eosinophils (%) (Auto) 1.4 0.0-7.0 % Basophils (%) (Auto) 0.8 0.0-2.0 % Neutrophils # (Auto) 2.5 1.6-8.6 10 ^3/uL Lymphocytes # (Auto) 1.9 0.4-5.4 10 ^3/uL Monocytes # (Auto) 0.3 0-1.3 10 ^3/uL Eosinophils # (Auto) 0.1 0-0.8 10 ^3/uL Basophils # (Auto) 0 0-0.2 10 ^3/uL Nucleated Red Blood Cells 0.1 % Sodium Level 144 136-145 mmol/L Potassium Level 4.1 3.5-5.1 mmol/L Chloride Level 107 98-107 mmol/L Carbon Dioxide Level 28 20-31 mmol/L Anion Gap 9 5-15 Blood Urea Nitrogen 13 9-23 mg/dL Creatinine 0.78 0.550-1.02 mg/dL Glomerular Filtration Rate Calc 91 >90 mL/min BUN/Creatinine Ratio 16.7 10.0-20.0 Serum Glucose 102 74-106 mg/dL Calcium Level 9.5 8.7-10.4 mg/dL Total Bilirubin 0.3 0.2-1.0 mg/dL Aspartate Amino Transferase (AST) 22 13-40 U/L Alanine Aminotransferase (ALT) 28 7-40 U/L Alkaline Phosphatase 112 46-116 U/L Total Protein 7.0 5.7-8.2 g/dL Albumin 4.6 3.2-4.8 g/dL Lipase 33 12-53 U/L Current Medications Medications (Trade) Dose Ordered Sig/Asmita Route Start Time Stop Time Status Last Admin Trimethoprim/ Sulfamethoxazole (Bactrim Ds Tablet) 1 tab ONCE ONCE PO 06/08/25 20:00 06/08/25 20:01 DC 06/08/25 20:34 Exam: CT CT AB PEL WO CON-NO ORAL OR IV History: flank pain Comparison Study: CT CT AB PEL WO CON-NO ORAL OR IV on DOS: 06/04/24, CT CT AB PEL WO CON-NO ORAL OR IV on DOS: 05/25/24 Technique: Multidetector spiral CT of the chest, abdomen and pelvis was performed from lower neck to pubic symphysis Axial, coronal and sagittal multiplanar reformats were performed by the technologist on a separate workstation. Radiation Dose : 1. Chest/Abdomen/Pelvis: CTDIvol 7.36 mGy, DLP 406.68 mGy*cm. Findings: Lower neck: Normal thyroid. Lungs: No focal consolidation, pleural effusion or pneumothorax. Heart/Vascular Structures: Normal heart size. No pericardial effusion. Lymph Nodes: No adenopathy Pleura: No pleural effusion or significant pneumothorax. Liver: The liver is normal in size. No focal lesions. Normal hepatic vascular enhancement. Gallbladder and Biliary Tree: Unremarkable Spleen: Unremarkable Pancreas: The pancreas is normal in appearance without focal lesions or abnormal enhancement. Adrenal Glands: Unremarkable Kidneys: Kidneys demonstrate normal symmetric enhancement without focal lesions, calculi or hydronephrosis. Bladder: Unremarkable Bowel: The stomach is grossly normal in appearance. Small bowel and colon are normal in caliber and distribution. The appendix is not visualized; however, no secondary findings of acute appendicitis identified. Ascites: Absent Lymphadenopathy: No mesenteric, retroperitoneal or periportal lymphadenopathy. Abdominal Wall and Mesentery: Unremarkable. Vasculature: The visualized abdominal aorta is normal in size and caliber. Abdominal and pelvic vessels demonstrate normal enhancement. Pelvic Organs: Unremarkable Musculoskeletal: No aggressive focal bony lesions, acute fractures or dislocation. IMPRESSION: No acute findings involving the chest, abdomen or pelvis. Time of 1ST Reevaluation: 19:07 Reevaluation 1ST: Unchanged Patient Education/Counseling: Diagnosis, Treatment Family Education/Counseling: No Family Present SEPSIS Sepsis Screen Date sepsis recognized/suspect: Jun 08, 2025 Time Sepsis recognized/suspect: 1718 Recent Procedure: No On Antibiotic Therapy: No Respiratory Rate >20: No Heart Rate >90: No Temp<36 C (96.8 F) or >38.3 C: No SBP <90 or MAP <65 mmHG: No New Acute Mental Status Change: No Is the patient on CPAP, BIPAP,: No Physician Orders Ct Ab Pel Wo Con-No Oral Or Iv (06/08/25 18:11) Vital Signs Date Time Temp Pulse Resp B/P (MAP) Pulse Ox O2 Delivery O2 Flow Rate FiO2 06/08/25 20:03 76 20 96 Room Air 06/08/25 20:03 98.3 76 20 121/75 (90) 96 98.3 06/08/25 17:14 98.2 82 16 128/81 98 98.2 Laboratory Tests Test 06/08/25 18:30 White Blood Count 4.8 10^3/uL (4.4-10.8) Medications Medications Dose Ordered Sig/Asmita Route Start Time Stop Time Status Last Admin Dose Admin Trimethoprim/ Sulfamethoxazole 1 tab ONCE ONCE PO 06/08/25 20:00 06/08/25 20:01 DC 06/08/25 20:34 Departure 1 Departure Time of Disposition: 21:00 Impression: Primary Impression: Acute right flank pain Disposition: HOME / SELF CARE / HOMELESS Condition: Stable e-Prescriptions Gabapentin (Once-Daily) (Gabapentin) 300 Mg Tab 300 MG PO Q6HP PRN, #30 TAB Prov: MARGARET CRAFT MD 06/08/25 Cefdinir (Cefdinir) 300 Mg Cap 1 CAP PO BID for 7 Days, #14 CAP Prov: MARGARET CRAFT MD 06/08/25 Discharged With: Self Critical Care Note Critical Care Time?: No Stability Stability form required: No Heart Score Heart Score: Heart Score Response (Comments) Value History N/A 0 EKG N/A 0 Age N/A 0 Risk Factors N/A 0 Troponin N/A 0 Total 0 I personally scribed for MARGARET CRAFT MD ([email or web address]) on 06/08/25 at 19:09. Electronically submitted by J Luis Weiss ([employer]). I personally scribed for MARGARET CRAFT MD ([email or web address]) on 06/08/25 at 20:30. Electronically submitted by J Luis Weiss ([employer]). MARGARET CRAFT MD Jun 08, 2025 19:09
--- NOTE | 2025-06-08 19:12 | DVH ---
Exam: CT CT AB PEL WO CON-NO ORAL OR IV History: flank pain Comparison Study: CT CT AB PEL WO CON-NO ORAL OR IV on DOS: 06/04/24, CT CT AB PEL WO CON-NO ORAL OR IV on DOS: 05/25/24 Technique: Multidetector spiral CT of the chest, abdomen and pelvis was performed from lower neck to pubic symphysis Axial, coronal and sagittal multiplanar reformats were performed by the technologist on a separate workstation. Radiation Dose : 1. Chest/Abdomen/Pelvis: CTDIvol 7.36 mGy, DLP 406.68 mGy*cm. Findings: Lower neck: Normal thyroid. Lungs: No focal consolidation, pleural effusion or pneumothorax. Heart/Vascular Structures: Normal heart size. No pericardial effusion. Lymph Nodes: No adenopathy Pleura: No pleural effusion or significant pneumothorax. Liver: The liver is normal in size. No focal lesions. Normal hepatic vascular enhancement. Gallbladder and Biliary Tree: Unremarkable Spleen: Unremarkable Pancreas: The pancreas is normal in appearance without focal lesions or abnormal enhancement. Adrenal Glands: Unremarkable Kidneys: Kidneys demonstrate normal symmetric enhancement without focal lesions, calculi or hydronephrosis. Bladder: Unremarkable Bowel: The stomach is grossly normal in appearance. Small bowel and colon are normal in caliber and distribution. The appendix is not visualized; however, no secondary findings of acute appendicitis identified. Ascites: Absent Lymphadenopathy: No mesenteric, retroperitoneal or periportal lymphadenopathy. Abdominal Wall and Mesentery: Unremarkable. Vasculature: The visualized abdominal aorta is normal in size and caliber. Abdominal and pelvic vessels demonstrate normal enhancement. Pelvic Organs: Unremarkable Musculoskeletal: No aggressive focal bony lesions, acute fractures or dislocation. IMPRESSION: No acute findings involving the chest, abdomen or pelvis.
[2025-06-08] MEDS ORDERED: GABA300T4 PO (20:00)
[2025-06-08] MEDS ORDERED: CEFD300C2 PO (20:00)
[2025-06-08 20:03] VITALS: BP 121/75; PULSE 76; RESP 20; TEMP 98.3; O2SAT 96
[2025-06-08] MEDS: SULFAMETHOX W/TRIMETH(800/160MG) DS TAB PO ONE (20:34)
== END 2025-06-08 20:38 | disposition home or self-care (01) ==
LOC: ER 17:12
DX: R10.A1 Flank pain, right side (principal); Z87.442 Personal history of urinary calculi; Z87.440 Personal history of urinary (tract) infections; Z79.899 Other long term (current) drug therapy
CPT/HCPCS: 36415; 74176; 80053; 83690; 85025